=== PATIENT | female | born 1955 | race Caucasian/White ===

== ENCOUNTER → 2021-02-10 | Outpatient (CLI) | payer MEDICARE, MEDICAID ==
[~2021-02-10] MED LIST: ACTOS15 MG PO; ADDERALL 10 MG10 MG PO; ALPHAGAN P10 ML OP; ALTACE10 M1 PO; BENAZEPRIL HCL20 MG PO; BENTYL 20 MG TA20 M1 PO; CRESTOR5 MG; GLUCOPHAGE XR750 MG PO; JANUVIA25 MG; KEFLEX500 MG PO; LIPITOR 20 MG T20 M1 PO; LUMIGAN2.5 M1 OP; NORCO 5-325 TA1 EACH PO; PEPCID AC20 M1 PO; RESTORIL30 MG PO; RISPERDAL0.5 MG PO; SYNTHROID300 MCG PO; THYROID; TRADJENTA5 MG PO; UNKNOWN BP MED; ZOCOR 10 MG TAB10 M1 PO; ZOLOFT 50 MG TA50 M1 PO
--- NOTE | 2021-02-10 15:42 | EKG ---
[place] [address] ELECTROCARDIOGRAM REPORT Name: HOLLAND PEREZ Room: [facility]#: [id number] Admission: 02/10/21 Attend Phys: Bola Lee Discharge: Date of : 55 Date of Service: 02/10/21 1150 Report #: [id number] THIS REPORT FOR: //name// [facility] Test Date: 2021-02-10 Test Time: 11:50:28 Pat Name: HOLLAND PEREZ Department: Room: Gender: F Library Paraprofessional: : 1955 Requested By: Armen Cerna Order Number: [id number] [place] MD: Rad Caldwell Measurements Intervals [place] Rate: 71 P: 68 HI: 126 QRS: 63 QRSD: 85 T: 56 QT: 400 QTc: 435 Interpretive Statements Sinus arrhythmia Compared to ECG 09/01/2015 19:40:05 Sinus arrhythmia is noted T-wave abnormality no longer present Electronically Signed On 02-10-2021 15:42:23 CELL PLASTERER by Rad Caldwell [email or web address] <ELECTRONICALLY SIGNED> By: Rad Caldwell MD, [facility] 02/10/21 1542 1150 1150 Rad Caldwell MD, [facility] /EPI
== END ==
LOC: M.RAD 11:26
PROVIDERS: ATTEND Family Medicine
DX: I49.8 Other specified cardiac arrhythmias (principal); I10 Essential (primary) hypertension

== ENCOUNTER → 2021-02-11 | Outpatient (CLI) | payer MEDICARE, MEDICAID | LOC: M.LAB 11:58 | PROVIDERS: ATTEND Podiatrist Foot Surgery | DX: Z01.812 Encounter for preprocedural laboratory examination (principal); Z20.822 Contact with and (suspected) exposure to COVID-19 ==